=== PATIENT | female | born 1975 | race American Indian/Alaskan Native ===

== ENCOUNTER 2017-06-24 23:24 | Emergency (ER) | payer SELFPAY ==
[2017-06-24 23:36] VITALS: RESP 16; O2SAT 98
[2017-06-25] MEDS ORDERED: Sodium Chloride 0.9% 1,000 ML IV STA (00:47)
--- NOTE | 2017-06-25 01:25 | ED PDOC ---
HPI: Back Time Seen by Provider: 06/25/17 00:29 Chief Complaint (Nursing): Back Pain Chief Complaint (Provider): Back Pain History Per: Patient History/Exam Limitations: no limitations Onset/Duration Of Symptoms: Hrs (started on Saturday 06/24 at 7 AM) Current Symptoms Are (Timing): Still Present Quality Of Discomfort: "Pain" Additional Complaint(s): 41 y/o female presents to the ED with left flank pain. Patient states pain was sudden and began at 7 AM when it woke her up from sleeping. Resolved initially when she took Motrin then returned this evening. She took Motrin again but with no relief and describes the pain as more severe than before associated with nausea. She denies any vomiting, diarrhea, constipation, dysuria, hematuria, frequency, fever, chills, vaginal discharge or bleeding. LMP was 2 weeks ago. PMD: None provided Past Medical History Reviewed: Historical Data, Nursing Documentation, Vital Signs Vital Signs: Last Vital Signs Temp 97.3 F L 06/24/17 23:33 Pulse 77 06/24/17 23:33 Resp 16 06/24/17 23:33 BP 138/85 06/24/17 23:33 Pulse Ox 98 06/24/17 23:33 - Medical History PMH: No Chronic Diseases - Surgical History Surgical History: - Family History Family History: States: Other Other Family History: Patient's brother had kidney stones. - Social History Current smoker - smoking cessation education provided: No Ex-Smoker (has not smoked in the last 12 months): No Alcohol: None Drugs: Denies - Home Medications Home Medications: Ambulatory Orders Medication Instructions Recorded Ibuprofen [Motrin Tab] 600 mg PO Q6 #30 tab 06/25/17 Tamsulosin [Flomax] 0.4 mg PO DAILY #20 cap 06/25/17 traMADol [Ultram] 50 mg PO Q8 #15 tab 06/25/17 - Allergies Allergies/Adverse Reactions: Allergies Allergy/AdvReac Type Severity Reaction Status Date / Time No Known Allergies Allergy Verified 06/24/17 23:33 Review of Systems ROS Statement: Except As Marked, All Systems Reviewed And Found Negative Constitutional: Negative for: Fever, Chills Gastrointestinal: Positive for: Nausea. Negative for: Vomiting, Diarrhea, Constipation Genitourinary Female: Negative for: Dysuria, Frequency, Hematuria, Vaginal Discharge, Vaginal Bleeding Musculoskeletal: Positive for: Back Pain (left flank pain) Physical Exam - Reviewed Nursing Documentation Reviewed: Yes Vital Signs Reviewed: Yes - Physical Exam Appears: Positive for: Well, In Acute Distress Head Exam: Positive for: ATRAUMATIC, NORMOCEPHALIC Skin: Positive for: Warm, Dry Eye Exam: Positive for: EOMI, PERRL ENT: Positive for: Pharynx Is (clear) Neck: Positive for: Painless ROM, Supple Cardiovascular/Chest: Positive for: Regular Rate, Rhythm. Negative for: Murmur Respiratory: Positive for: Normal Breath Sounds. Negative for: Respiratory Distress Gastrointestinal/Abdominal: Positive for: Soft, Tenderness (LLQ mild). Negative for: Mass, Distended, Guarding Back: Positive for: L CVA Tenderness. Negative for: R CVA Tenderness, Vertebral Tenderness Extremity: Positive for: Normal ROM. Negative for: Deformity Lymphatic: Negative for: Adenopathy Neurologic/Psych: Positive for: Alert. Negative for: Motor/Sensory Deficits - Laboratory Results Result Diagrams: 06/25/17 01:30 06/25/17 01:30 - ECG O2 Sat by Pulse Oximetry: 98 (RA) Pulse Ox Interpretation: Normal Medical Decision Making Medical Decision Making: Time: 23:33 Impression: Left Flank Pain Differential Diagnosis: Kidney stone, ovarian cyst, musculoskeletal strain, polyneuritis Initial Plan: * Abdominal & Pelvic CAT Scan * CMP * UDip * Test * CBC * Tylenol 975 mg PO * Toradol 15 mg IVP * IV Fluids * Flomax 0.4 mg PO * Urine Culture * Uranalysis Scribe Attestation: Documented by Dina Noriega acting as a scribe for Joshua Greenberg MD. Scribe Attestation: All medical record entries made by the Scribe were at my direction and personally dictated by me. I have reviewed the chart and agree that the record accurately reflects my personal performance of the history, physical exam, medical decision making, and the department course for this patient. I have also personally directed, reviewed, and agree with the discharge instructions and disposition. Disposition - Clinical Impression Clinical Impression: Back pain - Disposition Disposition: Transfer of Care Disposition Time: 01:00 Condition: STABLE Prescriptions: Ibuprofen [Motrin Tab] 600 mg PO Q6 #30 tab Tamsulosin [Flomax] 0.4 mg PO DAILY #20 cap traMADol [Ultram] 50 mg PO Q8 #15 tab Patient Signed Over To: Mitchell Oakley Handoff Comments: Pending ER workup reassessment and final ER disposition
--- NOTE | 2017-06-25 01:25 | ED PDOC ---
"- Laboratory Results Result Diagrams: 06/25/17 01:30 06/25/17 01:30 - ECG O2 Sat by Pulse Oximetry: 98 Pulse Ox Interpretation: Normal Medical Decision Making Medical Decision Makin Patient endorsed to me by Dr. Lewis pending workup and re-eval. 0200 Patient still in pain, lidocaine ordered, patient moved to room for cardiac monitoring 0400 Patient is feeling much better. 0500 EXAM: CT Abdomen and Pelvis Without Intravenous Contrast CLINICAL HISTORY: 41 years old, female; Pain; Abdominal pain; Flank; Left; Additional info: L flank pain R/O stone TECHNIQUE: Axial computed tomography images of the abdomen and pelvis without intravenous contrast. All CT scans at this facility use one or more dose reduction techniques, viz.: automated exposure control; ma/kV adjustment per patient size (including targeted exams where dose is matched to indication; i.e. head); or iterative reconstruction technique. Coronal and sagittal reformatted images were created and reviewed. COMPARISON: No relevant prior studies available. FINDINGS: Limitations: Lack of intravenous contrast. Motion artifact - mild. Lung bases: Minimal atelectasis. ABDOMEN: Liver: Unremarkable. Gallbladder and bile ducts: No calcified stones. No ductal dilation. Pancreas: Unremarkable. No ductal dilation. Spleen: No splenomegaly. Adrenals: No mass. Kidneys and ureters: Mild stranding about LEFT kidney. No renal calculi. Mild-to -moderate pelvocaliectasis of LEFT kidney. Mild to moderately dilated LEFT ureter. 0.2 x 0.2 x 0.2 cm calculus within LEFT distal ureter. Stomach and bowel: Few diverticula within sigmoid colon. No associated inflammatory stranding. Segmental areas of probable underdistention of sigmoid colon. No definite mural thickening. No obstruction. PELVIS: Appendix: No findings to suggest acute appendicitis. Bladder: Unremarkable. No stones. Reproductive: 1.8 x 2.0 x 2.0 cm hypodense lesion within LEFT ovary. ABDOMEN and PELVIS: JOMAR RAMIRES | Final Radiology Report CONFIDENTIALITY STATEMENT This report is intended only for use by the referring physician, and only in accordance with law. If you received this in error, call [phone]. Page 2 of 2 Intraperitoneal space: Trace free fluid within pelvis. No free air. Bones/joints: No acute fracture. Soft tissues: Tiny umbilical hernia containing fat. Vasculature: Unremarkable. No aneurysm. Lymph nodes: No pathologically enlarged lymph nodes. IMPRESSION: 1. LEFT distal ureteral calculus with cyth-qa-[id number] hydroureteronephrosis. 2. Probable LEFT ovarian cyst. Consider ultrasound. 3. Incidental/non-acute findings are described above. Patient informed of results, patient is feeling much improved, tolerating PO. Advised to followup with urology, take plenty of fluids, take motrin and if pain is severe, tramadol as well. Warned against abuse of narcotics and to only use tramadol as absolutely needed, patient understands this. Return precautions discussed. Disposition - Clinical Impression Clinical Impression: Kidney stone - POA Present On Arrival: None - Disposition Referrals: Sean Turner MD [Staff Provider] - Disposition: Routine/Home Disposition Time: 05:11 Condition: IMPROVED Prescriptions: Ibuprofen [Motrin Tab] 600 mg PO Q6 #30 tab Tamsulosin [Flomax] 0.4 mg PO DAILY #20 cap traMADol [Ultram] 50 mg PO Q8 #15 tab Instructions: Kidney Stones in Adults, Taking Narcotics Safely Forms: [facility] ([place])"
[2017-06-25 01:39] LABS: BASO % 0.4 % (0.0-2.0); EOS # 0.1 K/uL (0.0-0.7); EOS % 1.8 % (0.0-4.0); HEMOGLOBIN 13.5 g/dL (12.0-16.0); LYMPH # 1.3 K/uL (1.0-4.3); LYMPH % 16.3 % (20.0-40.0); MEAN CELL VOLUME 95.7 fl (81.0-99.0); MEAN CORPUSCULAR HEMOGLOBIN 32.4 pg (27.0-31.0); MEAN CORPUSCULAR HGB CONC 33.9 g/dL (33.0-37.0); MEAN PLATELET VOLUME 10.1 fl (7.2-11.7); MONO # 0.8 K/uL (0.0-0.8); MONO % 9.3 % (0.0-10.0); NEUT % 72.2 % (50.0-75.0); NRBC % 0.1 % (0.0-0.0); RBC 4.16 Mil/uL (3.80-5.20); RED CELL DISTRIBUTION WIDTH 12.8 % (11.5-14.5); WHITE BLOOD COUNT 8.2 K/uL (4.8-10.8)
[2017-06-25 01:43] LABS: ALB/GLOB RATIO 1.3 (1.0-2.1); ALBUMIN 4.1 g/dL (3.5-5.0); ALT/SGPT 44 U/L (9-52); AST/SGOT 45 U/L (14-36); BLOOD UREA NITROGEN 13 mg/dl (7-17); CALCIUM 9.6 mg/dL (8.4-10.2); GFR AFRICAN-AMERICAN > 60; GFR NON-AFRICAN AMERICAN > 60
[2017-06-25] MEDS ORDERED: Lidocaine 75 MG in Sodium Chloride 0.9% 100 ML IV STA (02:03)
--- NOTE | 2017-06-25 04:49 | CT ---
EXAM: CT Abdomen and Pelvis Without Intravenous Contrast CLINICAL HISTORY: 41 years old, female; Pain; Abdominal pain; Flank; Left; Additional info: L flank pain R/O stone TECHNIQUE: Axial computed tomography images of the abdomen and pelvis without intravenous contrast. All CT scans at this facility use one or more dose reduction techniques, viz.: automated exposure control; ma/kV adjustment per patient size (including targeted exams where dose is matched to indication; i.e. head); or iterative reconstruction technique. Coronal and sagittal reformatted images were created and reviewed. COMPARISON: No relevant prior studies available. FINDINGS: Limitations: Lack of intravenous contrast. Motion artifact - mild. Lung bases: Minimal atelectasis. ABDOMEN: Liver: Unremarkable. Gallbladder and bile ducts: No calcified stones. No ductal dilation. Pancreas: Unremarkable. No ductal dilation. Spleen: No splenomegaly. Adrenals: No mass. Kidneys and ureters: Mild stranding about LEFT kidney. No renal calculi. Ynea-tb-[id number] pelvocaliectasis of LEFT kidney. Mild to moderately dilated LEFT ureter. 0.2 x 0.2 x 0.2 cm calculus within LEFT distal ureter. Stomach and bowel: Few diverticula within sigmoid colon. No associated inflammatory stranding. Segmental areas of probable underdistention of sigmoid colon. No definite mural thickening. No obstruction. PELVIS: Appendix: No findings to suggest acute appendicitis. Bladder: Unremarkable. No stones. Reproductive: 1.8 x 2.0 x 2.0 cm hypodense lesion within LEFT ovary. ABDOMEN and PELVIS: Intraperitoneal space: Trace free fluid within pelvis. No free air. Bones/joints: No acute fracture. Soft tissues: Tiny umbilical hernia containing fat. Vasculature: Unremarkable. No aneurysm. Lymph nodes: No pathologically enlarged lymph nodes. IMPRESSION: 1. LEFT distal ureteral calculus with [id number] hydroureteronephrosis. 2. Probable LEFT ovarian cyst. Consider ultrasound. 3. Incidental/non-acute findings are described above.
[2017-06-25 05:25] VITALS: BP 126/78; PULSE 82; TEMP 98.1
== END 2017-06-25 05:25 | disposition home or self-care (01) ==
LOC: H.ER 23:24
DX: N13.2 Hydronephrosis with renal and ureteral calculous obstruction (principal); Z87.891 Personal history of nicotine dependence
CPT/HCPCS: 74176; 80053; 81025; 85025; 87086; 96361; 96374; 96375; 99284; J1885; J2001; J2405; J7040

== ENCOUNTER 2017-12-06 13:48 | Emergency (ER) | payer OTHER ==
[2017-12-06 13:59] VITALS: O2SAT 99
--- NOTE | 2017-12-06 14:15 | ED PDOC ---
HPI: Chest Pain Time Seen by Provider: 12/06/17 14:10 Chief Complaint (Nursing): Chest Pain Chief Complaint (Provider): Chest pain History Per: Patient History/Exam Limitations: no limitations Onset/Duration Of Symptoms: Hrs (x1), Sudden Onset Current Symptoms Are (Timing): Still Present Quality: Sharp Exacerbating Factors: Deep Breathing (inspiration) Additional Complaint(s): Lizbeth Andrade is a 42 year old female, with no significant past medical history, who presents to the emergency department for evaluation of a sudden onset sharp chest pain that radiates to the back approximately x1hr prior to arrival. Patient states pain is worst on inspiration. She denies any cough, fever, chills or other medical complaints. PMD: None provided. Past Medical History Reviewed: Historical Data, Nursing Documentation, Vital Signs Vital Signs: Last Vital Signs Temp 98.0 F 12/06/17 13:57 Pulse 73 12/06/17 13:57 Resp 20 12/06/17 13:57 BP 150/86 12/06/17 13:57 Pulse Ox 99 12/06/17 13:57 - Medical History PMH: No Chronic Diseases - Surgical History Surgical History: - Family History Family History: States: Unknown Family Hx - Home Medications Home Medications: Ambulatory Orders Medication Instructions Recorded Ibuprofen [Motrin Tab] 600 mg PO Q6 #30 tab 06/25/17 Tamsulosin [Flomax] 0.4 mg PO DAILY #20 cap 06/25/17 traMADol [Ultram] 50 mg PO Q8 #15 tab 06/25/17 Naproxen [Naprosyn] 500 mg PO Q12H #20 tab 12/06/17 - Allergies Allergies/Adverse Reactions: Allergies Allergy/AdvReac Type Severity Reaction Status Date / Time No Known Allergies Allergy Verified 12/06/17 13:56 Review of Systems ROS Statement: Except As Marked, All Systems Reviewed And Found Negative Constitutional: Negative for: Fever, Chills Cardiovascular: Positive for: Chest Pain Respiratory: Negative for: Cough Musculoskeletal: Positive for: Back Pain Physical Exam - Reviewed Nursing Documentation Reviewed: Yes Vital Signs Reviewed: Yes - Physical Exam Appears: Positive for: No Acute Distress Head Exam: Positive for: ATRAUMATIC, NORMAL INSPECTION, NORMOCEPHALIC Skin: Positive for: Normal Color, Warm, Dry Eye Exam: Positive for: Normal appearance, EOMI, PERRL Neck: Positive for: Painless ROM Cardiovascular/Chest: Positive for: Regular Rate, Rhythm. Negative for: Chest Non Tender (Mild anterior right sided chest pain, reproducible), Murmur Respiratory: Positive for: Normal Breath Sounds. Negative for: Respiratory Distress Gastrointestinal/Abdominal: Positive for: Normal Exam, Soft. Negative for: Tenderness Back: Positive for: Normal Inspection. Negative for: L CVA Tenderness, R CVA Tenderness, Vertebral Tenderness Extremity: Positive for: Normal ROM (upper and lower extremities). Negative for: Tenderness, Calf Tenderness, Deformity, Swelling Neurologic/Psych: Positive for: Alert, Oriented - Laboratory Results Result Diagrams: 12/06/17 15:05 12/06/17 15:05 - ECG O2 Sat by Pulse Oximetry: 99 (RA) Pulse Ox Interpretation: Normal - Progress Re-evaluation Time: 16:05 Condition: Improved (No pain after Toradol) Medical Decision Making Medical Decision Making: Time: 14:10 Initial Plan: --EKG --CMP --Troponin I --CBC w/ differential --D Dimer --Chest portable [RAD] --Reevaluation No evidence of PA, PE, pneumonia, aneurysm or pneumothorax. Scribe Attestation: Documented by Fred Mena, acting as a scribe for Mihai Herrera MD. Provider Scribe Attestation: All medical record entries made by the Scribe were at my direction and personally dictated by me. I have reviewed the chart and agree that the record accurately reflects my personal performance of the history, physical exam, medical decision making, and the department course for this patient. I have also personally directed, reviewed, and agree with the discharge instructions and disposition. Disposition - Clinical Impression Clinical Impression: Costochondritis - Patient ED Disposition Is Patient to be Admitted: No Counseled Patient/Family Regarding: Studies Performed, Diagnosis, Need For Followup, Rx Given - Disposition Referrals: [facility] [place] [Outside] Disposition: Routine/Home Disposition Time: 16:06 Condition: FAIR Prescriptions: Naproxen [Naprosyn] 500 mg PO Q12H #20 tab Instructions: Costochondritis Forms: [facility] (Micronesian)
[2017-12-06 15:26] LABS: BASO % 0.8 % (0.0-2.0); EOS # 0.1 K/uL (0.0-0.7); EOS % 1.8 % (0.0-4.0); HEMOGLOBIN 13.8 g/dL (12.0-16.0); LYMPH # 1.4 K/uL (1.0-4.3); MEAN CELL VOLUME 97.4 fl (81.0-99.0); MEAN CORPUSCULAR HEMOGLOBIN 33.1 pg (27.0-31.0); MEAN PLATELET VOLUME 10.5 fl (7.2-11.7); MONO # 0.5 K/uL (0.0-0.8); MONO % 10.6 % (0.0-10.0); NEUT # 2.6 K/uL (1.8-7.0); NEUT % 55.8 % (50.0-75.0); NRBC % 0.1 % (0.0-0.0); RBC 4.15 Mil/uL (3.80-5.20); RED CELL DISTRIBUTION WIDTH 13.5 % (11.5-14.5); WHITE BLOOD COUNT 4.6 K/uL (4.8-10.8)
[2017-12-06 15:38] LABS: ALB/GLOB RATIO 1.4 (1.0-2.1); ALBUMIN 4.3 g/dL (3.5-5.0); ALT/SGPT 31 U/L (9-52); AST/SGOT 32 U/L (14-36); BLOOD UREA NITROGEN 14 mg/dl (7-17); CALCIUM 9.8 mg/dL (8.4-10.2); GFR NON-AFRICAN AMERICAN > 60
--- NOTE | 2017-12-06 15:57 | RAD ---
Date of service: 12/06/2017 HISTORY: Chest pain COMPARISON: No prior. FINDINGS: LUNGS: No active pulmonary disease. PLEURA: No significant pleural effusion identified, no pneumothorax apparent. CARDIOVASCULAR: Normal. OSSEOUS STRUCTURES: No significant abnormalities. VISUALIZED UPPER ABDOMEN: Normal. OTHER FINDINGS: None. IMPRESSION: No active disease.
[2017-12-06 16:16] VITALS: BP 132/72; PULSE 76; RESP 16; TEMP 98.4
--- NOTE | 2017-12-07 07:00 | CARD ---
APPROVED REPORT Date of service: 12/06/2017 EKG Measurement Heart [id number] <Conclusion> Sinus bradycardia with sinus arrhythmia Otherwise normal ECG
== END 2017-12-06 16:16 | disposition home or self-care (01) ==
LOC: H.ER 13:48
DX: M94.0 Chondrocostal junction syndrome [Tietze] (principal)
CPT/HCPCS: 71045; 80053; 84484; 85025; 85378; 93005; 96374; 99283; J1885